=== PATIENT | female | born 1955 | race Two or more races ===

== ENCOUNTER 2023-03-26 21:41 | Inpatient (IN) | payer OTHER ==
[~2023-03-26] VITALS: Ht 167.6 cm; Wt 68.4 kg
[2023-03-27] MEDS ORDERED: ONDANSETRON HCL 4 MG/2 ML VIAL IV PRN ×2 (01:45→11:30)
[2023-03-27] MEDS ORDERED: MORPHINE SULFATE INJ 2 MG/ml SYRG IV PRN (01:45)
[2023-03-27 08:00] VITALS: BP 152/77; PULSE 91; RESP 19; TEMP 97.9; O2SAT 93
[2023-03-27 08:33] VITALS: RESP 18; O2SAT 98
[2023-03-27] MEDS ORDERED: GABA-1250 PO (09:06)
[2023-03-27] MEDS ORDERED: QUET300T14 PO (09:06)
[2023-03-27] MEDS ORDERED: TOPI100T29 PO (09:06)
[2023-03-27] MEDS ORDERED: CLON0.5T3 PO (09:06)
[2023-03-27] MEDS ORDERED: FAMO20TA10 PO (09:06)
[2023-03-27] MEDS ORDERED: TRAZ1TAB12 PO (09:06)
[2023-03-27] MEDS ORDERED: PANT40T PO (14:29)
[2023-03-27] MEDS ORDERED: METH2.5T PO (14:29)
[2023-03-27] MEDS ORDERED: PRE5T PO (14:29)
[2023-03-27] MEDS ORDERED: LEV25T PO (14:29)
[2023-03-27] MEDS ORDERED: CYCL-839 PO (14:46)
[2023-03-27] MEDS ORDERED: [UNRECOGNIZED DRUG - CODE] PO (14:46)
[2023-03-27] MEDS ORDERED: METH-928 PO (14:46)
[2023-03-27 15:01] VITALS: TEMP 36.6
== END 2023-03-27 15:25 | disposition home or self-care (01) | DRG 57 ==
LOC: TELE-WESTW 03-27 07:30
PROVIDERS: ADMIT Nurse Practitioner Family; ATTEND Nurse Practitioner Family
DX: G70.00 Myasthenia gravis without (acute) exacerbation (principal); C95.90 Leukemia, unspecified not having achieved remission; F02.83 Dementia in other diseases classified elsewhere, unspecified severity, with mood disturbance; E87.6 Hypokalemia; E03.9 Hypothyroidism, unspecified; F31.9 Bipolar disorder, unspecified; G40.909 Epilepsy, unspecified, not intractable, without status epilepticus; K21.9 Gastro-esophageal reflux disease without esophagitis; G89.4 Chronic pain syndrome; R13.10 Dysphagia, unspecified; Z80.6 Family history of leukemia; Z82.0 Family history of epilepsy and other diseases of the nervous system; Z83.3 Family history of diabetes mellitus; Z80.9 Family history of malignant neoplasm, unspecified; Z82.49 Family history of ischemic heart disease and other diseases of the circulatory system
CPT/HCPCS: G0378

== ENCOUNTER 2023-12-25 22:03 | Emergency (ER) | payer BC, OTHER ==
[~2023-12-25] VITALS: Ht 167.6 cm; Wt 76.0 kg
[~2023-12-25 22:03] MED LIST: CLON0.5T3 PO; CYCL-839 PO; FAMO20TA10 PO; GABA-1250 PO; LEV25T PO; METH-928 PO; METH2.5T PO; PRE5T PO; QUET300T14 PO; TOPI100T29 PO; TRAZ1TAB12 PO; [UNRECOGNIZED DRUG - CODE] PO
[2023-12-25] MEDS: SODIUM CHLORIDE 0.9% 1,000 ML IVB ONE (22:30)
[2023-12-25] MEDS: MORPHINE SULFATE 4 MG/ML SYR/VIAL IV ONE (22:30)
[2023-12-25] MEDS: ONDANSETRON HCL 4 MG/2 ML VIAL IV ONE (22:30)
[2023-12-25 22:49] LABS: Basophils # (auto) 0.1 10 ^3/uL (0-0.2); Basophils % (auto) 1.3 % (0.0-2.0); Eosinophils # (auto) 0.2 10 ^3/uL (0-0.8); Eosinophils % (auto) 2.9 % (0.0-7.0); Hematocrit 37.8 % (36.0-46.0); Hemoglobin 12.9 g/dL (12.2-16.2); Lymphocytes # (auto) 2.7 10 ^3/uL (0.4-5.4); Lymphocytes % (auto) 39.8 % (10.0-50.0); Mean Corpuscular Hemoglobin 33.9 pg (28.0-32.0); Mean Corpuscular Hgb Conc. 34.2 g/dL (32.0-36.0); Monocytes # (auto) 0.4 10 ^3/uL (0-1.3); Monocytes % (auto) 6.3 % (0.0-12.0); Neutrophils # (auto) 3.4 10 ^3/uL (1.6-8.6); Neutrophils % (auto) 49.7 % (37.0-80.0); Nucleated Red Blood Cells % 0.2 %; Red Blood Cells 3.82 10^6/uL (4.0-5.20); Red Cell Distribution Width 19.2 % (11.8-14.3); White Blood Cell 6.9 10^3/uL (4.4-10.8)
[2023-12-25] MEDS ORDERED: DOCU-94 PO (23:39)
[2023-12-26 02:06] VITALS: BP 148/88; PULSE 74; RESP 18; TEMP 98; O2SAT 96
== END 2023-12-26 02:08 | disposition home or self-care (01) ==
LOC: ER 22:03
DX: K59.00 Constipation, unspecified (principal); R10.84 Generalized abdominal pain; Z90.710 Acquired absence of both cervix and uterus; Z90.49 Acquired absence of other specified parts of digestive tract; Z87.891 Personal history of nicotine dependence; Z79.899 Other long term (current) drug therapy
CPT/HCPCS: 36415; 74176; 83690; 85025